=== PATIENT | female | born 1955 | race Caucasian/White ===

== ENCOUNTER → 2019-05-28 08:22 | Outpatient (POV) | payer MEDICARE, OTHER, SELFPAY ==
[2019-05-28 08:56] VITALS: BP 130/85; PULSE 70; RESP 18; O2SAT 99; BMI 38.6
--- NOTE | 2019-05-28 10:02 | [facility].PMCON ---
Assessment and Plan (1) Spinal stenosis Current visit: Yes Status: Chronic Category: Medical Code(s): M48.00 - Spinal stenosis, site unspecified (2) Degenerative joint disease (DJD) of lumbar spine Current visit: Yes Status: Chronic Category: Medical Code(s): M47.816 - Spondylosis without myelopathy or radiculopathy, lumbar region (3) Radiculopathy of lumbar region Current visit: Yes Status: Chronic Category: Medical Code(s): M54.16 - Radiculopathy, lumbar region - Assessment and plan all Dx Assessment and Plan for all problems:: Patient is uninterested in any interventions that we can offer her. Patient states that she was under the impression that we will be writing her oxycodone today. I discussed with her that we do not write narcotic medications for patients unless they have active cancer. Patient states that she was misinformed . Patient states that she wants a referral to another pain management clinic. I discussed with her that we do not send referrals to other clinics however her primary care could move forward with this to which she states that she has already used up all of her pain management referrals with her primary care. I discussed with her that I would be happy to give her some phone numbers that she could contact some clinics with. Patient and I discussed a mild however she states she did want to take any information in regards to it. Dr. Small has reviewed this note and agrees with this plan of care. This note was dictated using voice recognition software and may contain errors or omissions HPI - Data of Consult Consult date: 05/28/19 Requesting Physician: Alondra Rivera APRN Primary Care Provider: Junior Alicea - Consult Narrative Reason for consult: Back pain History of present illness: Ms. Luong is a 63 year old female who presents today for consultation in regards to her back pain. Patient states that she was a patient at [facility] however she failed a pill count and they discontinued writing her oxycodone for her. Patient states that she has had 3 additional referrals to pain management with no success as well. Patient states that she has upset her primary care she states that he will no longer write her medications. Patient states that she had some injective therapy which was helpful however the Percocet was more beneficial. Patient's MRI does show along with spinal stenosis ligamentum flavum hypertrophy and bulging disc along with facet degeneration. Patient and I discussed a mild to which she states that she is not sure she is interested in pursuing anything like this at this time. She does have difficulty with standing and walking and finds her self bending forward. CC: Alondra Rivera APRN [facility] History I have reviewed the patient's past medical history: Yes Medical History: Reports:: Diabetes Mellitus Type 2, Hypertension Denies:: Diabetes Mellitus Type 1 *Have you ever received a pneumonia vaccine?: Yes *Have you received a flu vaccine this season?: Yes Other Medical History: Reports: Hypothyroidism, Thyroid Disease Laterality Cases: Bilateral: Total Knee Replacement Other Surgeries: Yes: Cholecystectomy, Hysterectomy-Total Amputation: No Fractures: No - *Social History Smoking Status: Never smoker Alcohol Intake: never *Occupational Status:: other Housing: house Household Members: other *Travel in the last 8 weeks: None Family Hx:: Unable to obtain Review of Systems - Review of Systems ROS General: no recent weight change, no fever, no sleep disturbances Respiratory: no cough, no shortness of air, no recurring pulmonary infections Cardiovascular/Peripheral Vascular: No chest pain, No palpitations, no edema, no shortness of breath. Gastrointestinal: no new onset incontinence, normal bowel movements reported Genitourinary: no new onset incontinence Musculoskeletal: Back pain, leg pain Psychiatric: normal mood/ aff
== END ==
PROVIDERS: PCP Family Medicine; Visit Provider Clinical Nurse Specialist Family Health
DX: M48.00 Spinal stenosis, site unspecified (principal); M47.26 Other spondylosis with radiculopathy, lumbar region
CPT/HCPCS: 99202